=== PATIENT | female | born 1995 | race Asian ===

== ENCOUNTER 2023-12-17 19:18 | Inpatient (IN) | payer OTHER, SELFPAY ==
[2023-12-17 19:28] VITALS: BP 103/6; BMI 27.3
[2023-12-17 20:00] LABS: Glucose - Point of Care 89 mg/dl (70-99)
[2023-12-17 20:04] LABS: % Basophils 0.3 % (0-2); % Eosinophils 0.6 % (0-6); % Immature Granulocytes 0.3 % (0-0.5); % Lymphocytes 19.5 % (20.5-51.1); % Neutrophils 73.3 % (42.2-75.2); Absolute Eosinophils 0.1 10^3/uL (0-0.7); Absolute Lymphocytes 1.7 10^3/uL (1.2-3.4); Absolute Monocytes 0.5 10^3/uL (0.1-0.6); Absolute Neutrophils 6.5 10^3/uL (1.4-6.5); Hematocrit 36.9 % (37.0-47.0); Hemoglobin 12.5 g/dL (12.0-16.0); Mean Corp Hgb Conc. 33.9 g/dL (33.0-37.0); Mean Corpuscular Hgb 29.1 pg (27.0-31.0); Mean Platelet Volume 10.6 fL (7.4-10.4); Nucleated Red Blood Cells % 0 %; Platelet Count 220 10^3/uL (130-400); Red Blood Cell Count 4.29 10^6/uL (4.20-5.40); Red Cell Dist. Width 13.6 % (11.5-14.5); White Blood Cell Count 8.9 10^3/uL (4.8-10.8)
[2023-12-17] MEDS: LR 1000 IV (20:21)
[2023-12-17] MEDS: CYTOTEC 50 MICROGRAM VAG (20:22)
[2023-12-18] MEDS: SUBLIMAZE 100 MCG EPIDURAL (00:33)
[2023-12-18] MEDS: FENTANYL/BUPIVACAINE 100 EPIDURAL ×3 (00:33→16:19)
[2023-12-18] MEDS: BRETHINE 250 MCG SC (00:56)
[2023-12-18] MEDS: LR 1000 IV (04:19)
[2023-12-18 06:48] LABS: Glucose - Point of Care 82 mg/dl (70-99)
[2023-12-18] MEDS: TYLENOL 1000 MG PO ×2 (09:30→21:16)
[2023-12-18] MEDS: ZOFRAN 4 MG IV (09:31)
[2023-12-18 10:15] LABS: Glucose - Point of Care 74 mg/dl (70-99)
[2023-12-18] MEDS: PITOCIN 30 UNITS/NSS 500 ML IV (11:10)
[2023-12-18 14:06] LABS: Glucose - Point of Care 74 mg/dl (70-99)
[2023-12-18 19:00] LABS: Glucose - Point of Care 113 mg/dl (70-99)
[2023-12-18] MEDS: BICITRA 30 ML PO (21:16)
[2023-12-18] MEDS: ANCEF 10 IV (21:16)
[2023-12-18] MEDS: ZITHROMAX INFUSION 250 IV (21:18)
[2023-12-18] MEDS: METHERGINE INJECTION 0.200000000000000011 MG IM (22:31)
[2023-12-19] MEDS: TORADOL 15 MG IV ×4 (05:25→23:41)
[2023-12-19 05:26] LABS: Hematocrit 31.3 % (37.0-47.0); Hemoglobin 10.9 g/dL (12.0-16.0); Mean Corp Hgb Conc. 34.8 g/dL (33.0-37.0); Mean Corpuscular Hgb 29.5 pg (27.0-31.0); Mean Corpuscular Volume 84.8 fL (81.0-99.0); Mean Platelet Volume 10.4 fL (7.4-10.4); Platelet Count 176 10^3/uL (130-400); Red Blood Cell Count 3.69 10^6/uL (4.20-5.40); Red Cell Dist. Width 13.7 % (11.5-14.5); White Blood Cell Count 15.9 10^3/uL (4.8-10.8)
[2023-12-19] MEDS: SENOKOT-S 1 TABLET PO (09:22)
[2023-12-19] MEDS: PRENATAL PLUS 1 TABLET PO (09:22)
--- NOTE | 2023-12-19 12:42 | W.PN.ANS.POP ---
Anesthesia Post Operative
- Anesthesia Post Op Note
Vital Signs Stable-See Nursing Note: Yes
Airway Patent: Yes
Adequate Pain Control: Yes
Change in Mental Status: No
Current Postoperative Nausea & Vomiting: No
Anesthesia Complications: No
General Anesthetic Recall: No
Unplanned Admission: No
Post Op Hydration Adequate: Yes
[2023-12-19] MEDS: TYLENOL 650 MG PO (19:47)
[2023-12-20] MEDS: TYLENOL 650 MG PO ×3 (06:11→20:17)
[2023-12-20] MEDS: MOTRIN 600 MG PO ×3 (06:11→20:17)
[2023-12-20] MEDS: PRENATAL PLUS 1 TABLET PO (07:34)
[2023-12-20] MEDS: SENOKOT-S 1 TABLET PO (07:35)
[2023-12-21] MEDS: TYLENOL 650 MG PO (06:16)
[2023-12-21] MEDS: MOTRIN 600 MG PO (06:16)
[2023-12-21] MEDS: PRENATAL PLUS PO (08:09)
[2023-12-22 16:43] LABS: Syphilis/T. pallidum Ab Reflex Negative (Negative)
--- NOTE | 2024-01-08 17:32 | W.DS.TRANS ---
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
-
Discharge Instructions:
Discharge Diagnosis/Procedures Section
Instructions:
Stand-Alone Forms: LDRP Delivery
Changes to Home Medications: No
Discharge Medications:
DC Medications w/original date entered in [employer]
prenat.vits,eileen,ddl-scjm-dzhll 1 tab PO DAILY Supplement 12/17/23
acetaminophen 325 mg tablet 650 mg PO Q4HPRN PRN mild pain #0 tabs 12/21/23
ibuprofen 600 mg tablet 600 mg PO Q6HPRN PRN cramps #45 tabs 12/21/23
sennosides 8.6 mg-docusate sodium 50 mg tablet (Stool Softener-Stimulant Laxative) 1 tab PO DAILYPRN PRN constipation #0 tabs 12/21/23
Home Medication Changes
Pending Results: No
== END 2023-12-21 12:25 | disposition home or self-care (01) | DRG 788 ==
LOC: LDRP 19:18
PROVIDERS: Obstetrics & Gynecology; ADMITTING PHYSICIAN Obstetrics & Gynecology
PROC: 3E0P7VZ Introduction of Hormone into Female Reproductive, Via Natural or Artificial Opening (ICD-10-PCS; 2023-12-17)
PROC: 10D00Z1 Extraction of Products of Conception, Low, Open Approach (ICD-10-PCS; 2023-12-18)
PROC: 10907ZC Drainage of Amniotic Fluid, Therapeutic from Products of Conception, Via Natural or Artificial Opening (ICD-10-PCS; 2023-12-18)
DX: O48.0 Post-term pregnancy (principal); Z3A.40 40 weeks gestation of pregnancy; Z37.0 Single live birth; O24.420 Gestational diabetes mellitus in childbirth, diet controlled; Z88.2 Allergy status to sulfonamides; Z91.013 Allergy to seafood; O77.0 Labor and delivery complicated by meconium in amniotic fluid; O76 Abnormality in fetal heart rate and rhythm complicating labor and delivery; O61.0 Failed medical induction of labor; O62.2 Other uterine inertia
CPT/HCPCS: 88307; 36415; 82962; 85025; 85027; 86780; 86850; 86900; 86901

== ENCOUNTER → 2025-07-11 07:51 | Outpatient (REF) | payer OTHER, SELFPAY | LOC: PNTC 07:51 | PROVIDERS: ATTENDING PHYSICIAN Student in an Organized Health Care Education/Training Program | DX: Z36.0 Encounter for antenatal screening for chromosomal anomalies (principal); Z36.82 Encounter for antenatal screening for nuchal translucency; Z98.891 History of uterine scar from previous surgery; Z86.32 Personal history of gestational diabetes; Z3A.13 13 weeks gestation of pregnancy | CPT/HCPCS: 76801; 76813 ==

== ENCOUNTER 2025-10-03 20:56 | Observation (INO) | payer OTHER, SELFPAY ==
[2025-10-03 21:20] VITALS: BP 102/64; BMI 26.4
== END 2025-10-03 21:56 | disposition home or self-care (01) ==
LOC: LDRP 20:56
PROVIDERS: ADMITTING PHYSICIAN Obstetrics & Gynecology
DX: O26.892 Other specified pregnancy related conditions, second trimester (principal); N89.8 Other specified noninflammatory disorders of vagina; Z3A.24 24 weeks gestation of pregnancy; Z88.2 Allergy status to sulfonamides; Z91.013 Allergy to seafood
CPT/HCPCS: 59899; 59025; G0378